=== PATIENT | female | born 1970 | race Caucasian/White ===

== ENCOUNTER 2020-07-26 09:02 | Emergency (ER) | payer OTHER, SELFPAY ==
--- NOTE | ~2020-07-26 | US_ITS ---
EXAMINATION: US venous doppler LE RT EXAM DATE: 07/26/2020 09:52 INDICATION: Right leg swollen and erythematous LE w/o trauma. TECHNIQUE: Multiple grayscale, color flow and Doppler images of the right lower extremity deep venous system were obtained and reviewed. There is no prior study for comparison. FINDINGS: The right common femoral, femoral and profunda veins demonstrate normal color flow, respira tory variation, augmentation and compressibility. Compressibility, color flow confirmed within the r ight popliteal, posterior tibial, peroneal, and greater saphenous veins. IMPRESSION: 1. No right lower extremity deep venous thrombosis. Reviewed, dictated and finalized at location B. GN INSERTER
--- NOTE | ~2020-07-26 | XR_ITS ---
EXAMINATION: XR knee RT min 4V DATE: 07/26/2020 09:59 INDICATION: Right knee pain and swelling. TECHNIQUE: 4 views of right knee were obtained. COMPARISON: None. FINDINGS: Bone alignment is normal. No fracture. There is mild tricompartmental osteoarthritis charac terized by tiny marginal osteophytes. No knee joint effusion. There is anterior knee soft tissue swel ling. IMPRESSION: 1. Mild right knee osteoarthritis. Reviewed, dictated and finalized at location A. TRONIC PREPRESS TECHNICIAN
[2020-07-26 09:00] VITALS: BP 121/66; PULSE 84; RESP 18; TEMP 37.7; O2SAT 96
[2020-07-26] MEDS: KETOROLAC 30 MG/ML VIAL (*BKC) 15 MG IV PUSH (09:25)
[2020-07-26 09:32] LABS: Basophils Absolute Auto 0.1 K/mm3 (0.0-0.1); Basophils Percent Auto 0.6 % (0.2-1.2); Eosinophils Absolute Auto 0.1 K/mm3 (0-0.3); Eosinophils Percent Auto 0.3 % (0-4.4); Hematocrit 38.5 % (37.0-47.0); Hemoglobin 12.8 g/dL (12.0-15.0); Immature Granulocyte Absolute 0.09 K/mm3 (0.00-0.031); Immature Granulocyte Percent A 0.6 % (0-0.5); Lymphocytes Absolute Auto 0.78 K/mm3 (0.9-3.2); Lymphocytes Percent Auto 5.3 % (18.3-44.2); Mean Corpuscular HGB Conc 33.2 g/dl (32-36); Mean Corpuscular Hemoglobin 29.2 pg (26-34); Mean Corpuscular Volume 87.7 fl (80-100); Mean Platelet Volume 11.5 fl (7.4-10.4); Monocytes Absolute Auto 0.7 K/mm3 (0.1-0.6); Monocytes Percent Auto 5.1 % (2.6-8.5); Neutrophils Absolute Auto 12.8 K/mm3 (1.3-6.7); Neutrophils Percent Auto 88.1 % (45.5-73.1); Platelet Count Result 144 k/mm3 (150-375); Red Blood Count 4.39 M/mm3 (4.2-5.4); Red Cell Distribution Width 13.4 % (11.5-14.5); White Blood Count 14.6 K/mm3 (4.5-10.0)
[2020-07-26 09:41] LABS: INR 1.1; Partial Thromboplastin Time 28.1 SECONDS (22.3-36.8); Prothrombin Time 14.4 Seconds (11.1-14.7)
[2020-07-26 09:49] LABS: Alanine Aminotransferase 12 U/L (4-35); Albumin Level 3.2 g/dL (3.5-5.1); Alkaline Phosphatase 72 U/L (38-126); Anion Gap 8 mmol/L (8-16); Aspartate Amino Transferase 23 U/L (14-36); Bilirubin,Total 1.3 mg/dL (0.2-1.3); Blood Urea Nitrogen 17 mg/dL (7-17); Calcium 8.3 mg/dL (8.4-10.2); Carbon Dioxide 24 mmol/L (22-30); Chloride 98 mmol/L (98-107); Creatine Kinase 22 U/L (30-135); Estimated CRCL calculation 88 ml/min; Estimated Glomerular Filt Rate > 60; Glucose 132 mg/dL (65-105); Potassium 3.9 mmol/L (3.4-5.0); Sodium 130 mmol/L (137-145); Uric Acid 1.5 mg/dL (2.5-7.5)
[2020-07-26 10:37] VITALS: BP 105/61; PULSE 98; RESP 17; O2SAT 97
[2020-07-26] MEDS: CLINDAMYCIN 600 MG/NS 50 ML 600 MG/50 ML PIGGYBACK 100 MG IVPB (10:56)
--- NOTE | 2020-07-26 10:56 | ED.GENADULT ---
HPI - General Adult General Chief complaint: Extremity Injury, Lower Stated complaint: PAIN/SWELLING RT KNEE Time Seen by Provider: 07/26/20 09:06 Source: patient Mode of arrival: EMS Limitations: no limitations History of Present Illness HPI narrative: Patient presents with chief complaint of pain to the distal aspect of her calf and extends upward into her knee that has been worsening in redness and erythema and pain over the past 3 days. Patient states she has difficulty bearing weight due to pain and swelling. Patient reports that she has not had any trauma to the right knee besides cleaning 5 days ago on her knees. Patient states she has never had gout in her knees to her knowledge nor any other issues besides arthritis. Patient denies fever, chills, nausea, vomiting, diarrhea. Patient denies history of DVTs or PEs. Patient denies recent travel or being on any blood thinners. Related Data Allergies Allergy/AdvReac Type Severity Reaction Status Date / Time Penicillins Allergy Unknown unknown Verified 07/26/20 09:06 PCN? Allergy Unknown unknown Uncoded 02/29/20 16:14 Review of Systems Review of Systems: Narrative: CONSTITUTIONAL: Denies fever, chills, or sweats. EYES: Denies visual changes, redness, or discharge. ENT: Denies rhinorrhea, congestion, sore throat, or otalgia. CARDIOVASCULAR: Denies chest pain, palpitations, or edema. RESPIRATORY: Denies cough or dyspnea. GASTROINTESTINAL: Denies abdominal pain, nausea, vomiting, or diarrhea. GENITOURINARY: Denies dysuria or hematuria. SKIN: Reports erythema swelling and pain to right knee denies rash or itching. MUSCULOSKELETAL: Reports right knee pain and swelling denies back pain or myalgia. NEUROLOGIC: Denies headache, numbness, dizziness, or weakness. PSYCHIATRIC: Denies anxiety or depression. FORMERLY [facility], 1928–1983 Past Medical History Medical History (Updated 07/26/20 @ 11:06 by Phoebe Morrison PA-C) Back pain Varicose vein of leg Vitamin D deficiency, unspecified Surgical History Surgical History (Updated 02/29/20 @ 16:43 by Zulma Cantrell, ) H/O varicose vein stripping (~2009) S/P section (~1994) S/P eye surgery (~1973) Family History Family History (Updated 06/29/20 @ 16:46 by Zulma Cantrell, ) Mother Hypertension Heart disease Father COPD (chronic obstructive pulmonary disease) with emphysema Social History Social History (Updated 02/29/20 @ 16:45 by Zulma Cantrell, ) Smoking status: Former smoker Tobacco type: cigarettes and e-cigarettes/vaping Smoking end date: 09/02/13 Alcohol intake: never 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 HEAD: Normocephalic, atraumatic. EYES: PERRLA and EOMI. NECK: Supple. No adenopathy or masses. CHEST: Clear to auscultation. No respiratory distress. No wheezes rales or rhonchi HEART: Regular rate and rhythm. No murmur heard. Normal peripheral pulses. EXTREMITIES: Edema, erythema, swelling and tenderness noted to the anterior aspect of the right knee distally to the proximal aspect of the right calf. There is pain with palpation of the calf and flexion extension of the ankle. The calf is not tight. Cap refill and pulses intact. Patient refuses to flex or extend the knee due to pain. Patient refuses to weight-bear. NEURO: No focal deficits. Alert and oriented x3. PSYCH: Normal mood and affect. Course Vital Signs Vital signs: Vital Signs Temperature 99.8 F H 07/26/20 09:00 Pulse Rate 84 07/26/20 09:00 Respiratory Rate 18 07/26/20 09:00 Blood Pressure 121/66 07/26/20 09:00 Pulse Oximetry 96 07/26/20 09:00 Temperature 99.8 F H 07/26/20 09:00 Pulse Rate 98 07/26/20 10:37 Respiratory Rate 17 07/26/20 10:37 Blood Pressure 105/61 07/26/20 10:37 Pulse Oximetry 97 07/26/20 10:37 Medical Decision Making
[2020-07-26 11:54] VITALS: BP 102/60; PULSE 92; RESP 15; O2SAT 97
== END 2020-07-26 11:56 | disposition home or self-care (01) ==
PROVIDERS: Physician Assistant; Emergency Provider Family Medicine
DX: L03.115 Cellulitis of right lower limb (principal); E55.9 Vitamin D deficiency, unspecified; Z87.891 Personal history of nicotine dependence
CPT/HCPCS: 36415; 73564; 80053; 82550; 84550; 85025; 85610; 85730; 87040; 93971; 96365; 96375; 99284; J1885

== ENCOUNTER 2020-08-01 09:47 | Emergency (ER) | payer OTHER, SELFPAY ==
--- NOTE | ~2020-08-01 | XR_ITS ---
EXAMINATION: XR knee RT 3V DATE: 08/01/2020 10:25 INDICATION: Right knee swelling. TECHNIQUE: 3 views of right knee were obtained. COMPARISON: Right knee radiographs 07/26/2020 FINDINGS: Bone alignment is normal. No fracture. There is mild tricompartmental osteoarthritis. There is a tiny marginal osteophytes. No knee joint effusion. There is anterior knee soft tissue swelling, consistent with bursitis. IMPRESSION: 1. Mild right knee osteoarthritis. 2. Prepatellar and superficial infrapatellar bursitis. Reviewed, dictated and finalized at location A. BURNER
[2020-08-01 09:52] VITALS: BP 120/89; PULSE 93; RESP 18; TEMP 36.6; O2SAT 100
--- NOTE | 2020-08-01 10:07 | ED.SKABFB ---
HPI - Skin/Abscess/Foreign Bdy General Chief complaint: Extremity Injury, Lower Stated complaint: right leg pain Time Seen by Provider: 08/01/20 09:51 History of Present Illness HPI narrative: Sent from Dr. Pelayo's office for concerns about worsening cellulitis. She was originally seen here 6 days ago and discharged on clindamycin. The provider seeing her today had not seen it previously, but thought that it might be worse. The patient, her , and the ED nurse all feel that it has improved. She does have ongoing pain, but feels that it is better than it had been. No fever, chills, nausea, vomiting. She has a penicillin allergy. Related Data Allergies Allergy/AdvReac Type Severity Reaction Status Date / Time Penicillins Allergy Unknown unknown Verified 08/01/20 09:56 Review of Systems Review of Systems: All systems reviewed & are unremarkable except as noted in HPI and below Constitutional: Constitutional: Denies chills and Denies fever(s) Cardiovascular: Cardiovascular: Denies chest pain Respiratory: Respiratory: Denies dyspnea Gastrointestinal: Gastrointestinal: Denies abdominal pain, Denies nausea and Denies vomiting Musculoskeletal: Musculoskeletal: Denies back pain Neurologic: Denies numbness and Denies weakness PMFSH Past Medical History Medical History Back pain Varicose vein of leg Vitamin D deficiency, unspecified Surgical History Surgical History H/O varicose vein stripping (~2009) S/P section (~1994) S/P eye surgery (~1973) Family History Family History Mother Hypertension Heart disease Father COPD (chronic obstructive pulmonary disease) with emphysema Social History Social History Smoking status: Former smoker Tobacco type: cigarettes and e-cigarettes/vaping Smoking end date: 09/02/13 Alcohol intake: never 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 No significant warmth or redenss Neuro: General: patient oriented x3, moves all extremities and CN's II-XI intact bilaterally Speech: normal speech Extrem: Other: Mild swelling of the right distal thigh though calf. Worst around the knee. Moderate tenderness around the joint line. Full ROM. Course Vital Signs Vital signs: Vital Signs Temperature 36.6 C 08/01/20 09:52 Pulse Rate 93 08/01/20 09:52 Respiratory Rate 18 08/01/20 09:52 Blood Pressure 120/89 08/01/20 09:52 Pulse Oximetry 100 08/01/20 09:52 Temperature 36.6 C 08/01/20 09:52 Pulse Rate 64 08/01/20 12:21 Respiratory Rate 18 08/01/20 12:21 Blood Pressure 112/71 08/01/20 12:21 Pulse Oximetry 100 08/01/20 12:21 MDM - Skin/Abscess/Foreign Bdy MDM Narrative Medical decision making narrative: Everbody who has previously seen her leg believes that it is improving, including the patient and the nurse taking care of her today. I have not seen it previously, but it looks mild at this time. White count still elevated, but improving. I do not believe that she requires hospitalization at this time. I will change doxycycline to see if it is more effective. Medical Records Attestation: I reviewed the patient's medical records. Lab Data Attestation: I reviewed the patient's lab results. Result d
[2020-08-01 10:40] LABS: Basophils Absolute Auto 0.1 K/mm3 (0.0-0.1); Basophils Percent Auto 0.4 % (0.2-1.2); Eosinophils Absolute Auto 0.1 K/mm3 (0-0.3); Eosinophils Percent Auto 0.7 % (0-4.4); Hematocrit 33.8 % (37.0-47.0); Hemoglobin 11.1 g/dL (12.0-15.0); Immature Granulocyte Absolute 0.24 K/mm3 (0.00-0.031); Lymphocytes Absolute Auto 2.67 K/mm3 (0.9-3.2); Lymphocytes Percent Auto 22.3 % (18.3-44.2); Mean Corpuscular HGB Conc 32.8 g/dl (32-36); Mean Corpuscular Hemoglobin 28.2 pg (26-34); Mean Corpuscular Volume 85.8 fl (80-100); Mean Platelet Volume 10.3 fl (7.4-10.4); Monocytes Absolute Auto 0.5 K/mm3 (0.1-0.6); Monocytes Percent Auto 4.2 % (2.6-8.5); Neutrophils Absolute Auto 8.4 K/mm3 (1.3-6.7); Neutrophils Percent Auto 70.4 % (45.5-73.1); Platelet Count Result 380 k/mm3 (150-375); Red Blood Count 3.94 M/mm3 (4.2-5.4); Red Cell Distribution Width 14.2 % (11.5-14.5)
[2020-08-01 10:51] LABS: Anion Gap 5 mmol/L (8-16); Blood Urea Nitrogen 20 mg/dL (7-17); Calcium 8.3 mg/dL (8.4-10.2); Carbon Dioxide 29 mmol/L (22-30); Chloride 105 mmol/L (98-107); Estimated Glomerular Filt Rate > 60; Glucose 126 mg/dL (65-105); Sodium 139 mmol/L (137-145)
[2020-08-01 12:21] VITALS: BP 112/71; PULSE 64; RESP 18; O2SAT 100
== END 2020-08-01 13:52 | disposition home or self-care (01) ==
PROVIDERS: Emergency Provider Emergency Medicine; PCP Family Medicine
DX: L03.115 Cellulitis of right lower limb (principal); Z87.891 Personal history of nicotine dependence; E55.9 Vitamin D deficiency, unspecified
CPT/HCPCS: 36415; 73562; 80048; 85025; 96365; 99284; J0690

== ENCOUNTER 2020-08-29 16:46 | Outpatient (CLI) | payer OTHER, SELFPAY ==
--- NOTE | ~2020-08-29 | MR_ITS ---
EXAMINATION: MR knee RT wo con DATE: 08/29/2020 17:43 INDICATION: Right knee pain. TECHNIQUE: Magnetic resonance imaging (MRI) of the affected knee was performed without intravenous co ntrast. Sequences included coronal PD-weighted FSE, coronal PD-weighted FS FSE, sagittal T2-weighted FSE, sagittal PD-weighted FS FSE and axial PD weighted fat saturated FSE. COMPARISON: None. FINDINGS: Medial compartment: Medial meniscus is normal. Articular cartilage is normal. Lateral compartment: Lateral meniscus is normal. Small region of partial-thickness chondral fissuring at the central aspec t of the lateral tibial plateau. Articular cartilage along the lateral femoral condyle is normal. Patellofemoral compartment: Horizontally oriented chondral fissuring involving greater than 50% the cartilage thickness but witho ut degenerative subchondral changes extending from the medial side of the lateral patellar facet acro ss the apical ridge and medial facet. Trochlear cartilage is normal. Ligaments and tendons: Anterior and posterior cruciate ligaments are normal. The medial collateral ligament and fibular argelia ateral ligament complex are normal. The extensor mechanism is normal. The visualized medial and later al hamstring tendons as well as the iliotibial band are normal. Fluid: Physiologic amount of fluid in the joint space. No loose osteochondral bodies identified. Prepatellar bursitis with small amount of fluid in the prepatellar bursa which measures approximately 2.8 cm med ial collateral, 3.3 cm craniocaudally and up to 5 mm in maximal thickness. There is an additional lar thi loculated fluid collection measuring approximately 6 cm craniocaudally, 5.0 cm anteroposteriorly and 9 mm in maximal thickness overlying the lateral patellar retinaculum. There is prominent subcutan eous edema at the anterior, medial and lateral aspects of the knee consistent with given history of c ellulitis. Osseous/other: Normal marrow signal. No fracture or abnormal marrow replacing process. IMPRESSION: 1. Small amount of fluid in the prepatellar bursa consistent with bursitis which could be either sept ic or aseptic. 2. Additional larger loculated subcutaneous fluid collection overlying the lateral patellar retinacul um which could represent an abscess or less likely hematoma/seroma given the provided history of no p rior trauma. 3. Mild osteoarthritis with regions of moderate grade chondromalacia at the patella and lateral tibia l plateau. Reviewed, dictated and finalized at location A. NG TELLER IMPRESSION: 1. Small amount of fluid in the prepatellar bursa consistent with bursitis whic h could be either septic or aseptic. 2. Additional larger loculated subcutaneous fluid collection overlying the late ral patellar retinaculum which could represent an abscess or less likely hemato ma/seroma given the provided history of no prior trauma. 3. Mild osteoarthritis with regions of moderate grade chondromalacia at the pat malik and lateral tibial plateau.
== END 2020-08-29 16:47 | disposition home or self-care (01) ==
PROVIDERS: PCP Family Medicine; Visit Provider Nurse Practitioner
DX: M70.41 Prepatellar bursitis, right knee (principal); M17.11 Unilateral primary osteoarthritis, right knee
CPT/HCPCS: 73721

== ENCOUNTER 2020-10-11 15:18 | Outpatient (RCR) | payer OTHER, SELFPAY ==
--- NOTE | 2020-10-11 16:05 | PTOPEVAL ---
PHYSICAL THERAPY EVALUATION AND DISCHARGE Thank you for referring Christen Rodríguez to [facility].? The patient does not currently require skilled therapy. She was provided with HEP to continue. No further care plan will be developed. Please review, sign, date and return this plan of care SEAN. I agree with and certify that the following plan of care is medically necessary. Referring Physician Date Attending Provider: Jamaal Perez MD Evaluation Diagnosis right knee bursitis Subjective Information Christen is here today with c/o Query Text:As Reported By Patient/ right knee pain. She reports Family that pain overall is much reduced. She states that if she goes down on the knee, she can feel the squishy-ness of the fluid in the knee. She walks her dog and she gets on the floor to play with her nephew. States that she only has pain when she does a lot of strenuous work. States that stair climbing has improved. States that when the pain first started, she was using crutches and a cane and then progressed to using nothing. She was using heat and ice to reduce pain. Self Report Pain Assessment Right Knee(s) Reported Pain Level 0 Pain Description Aching Pain Frequency Acute,Intermittent Lowest Pain Intensity 0 Greatest Pain Intensity 5 Pain Score Pain Score 0: Self Report Lower Extremity Range of Motion Knee Range of Motion Right Knee Flexion Range of Motion - Active 141 Knee Extension Range of Motion - Active 0 Query Text: Knee Range of Motion Limitations Edema Lower Extremity Muscle Strength Testing Hip Strength Right Hip Flexion Strength 5 Normal Hip Extension Strength 4 Good Hip Abduction Strength 4 Good Hip Strength Comments functional squat: 40% of squat with mild femoral internal rotation of right LE Knee Strength Right Knee Flexion Strength 5 Normal Knee Extension Strength 5 Normal Muscle Length Testing Muscle Length Testing Left Hamstring Length -20 Query Text:(90 - 90 Position) Right Hamstring Length -20 Query Text:(90 - 90 Position) Palpation Assessment Palpation Palpation no prepatellar edema noted to palpation Gait As
== END 2020-12-26 09:31 | disposition home or self-care (01) ==
LOC: ANHPT 15:18
PROVIDERS: PCP Family Medicine; Referring Provider Orthopaedic Surgery; Visit Provider Orthopaedic Surgery
DX: M25.561 Pain in right knee (principal); M71.9 Bursopathy, unspecified
CPT/HCPCS: 97161

== ENCOUNTER 2021-11-15 16:22 | Outpatient (CLI) | payer OTHER, SELFPAY ==
--- NOTE | ~2021-11-15 | XR_ITS ---
XR lumbar spine 2-3V DATE: 11/15/2021 16:41 INDICATION: Low back pain TECHNIQUE: AP, lateral and coned lateral lumbosacral views COMPARISON: CT lumbar spine FINDINGS: There is slight dextroscoliosis of the lumbar spine. There is a transitional L5 vertebra. There is moderate degenerative disc disease of the lumbar spine. There is associated mild retrolist hesis at L3-4. No fracture or bone destruction. The lumbar pedicles are intact. The sacroiliac joints are normal. IMPRESSION: Moderate degenerative disc disease of lumbar spine, with mild retrolisthesis at L3-4 Reviewed, dictated and finalized at location A. IMPRESSION: Moderate degenerative disc disease of lumbar spine, with mild retro listhesis at L3-4
== END 2021-11-15 16:23 | disposition home or self-care (01) ==
PROVIDERS: PCP Family Medicine; Visit Provider Nurse Practitioner Family
DX: M54.50 Low back pain, unspecified (principal); M51.36 Other intervertebral disc degeneration, lumbar region
CPT/HCPCS: 72100

== ENCOUNTER 2025-03-20 10:02 | Outpatient (CLI) | payer OTHER, SELFPAY ==
--- OUTSIDE RECORDS SUMMARY | 2025-03-20 10:09 | XMS_ITS | Continuity of Care Document ---
Author Organization [facility] Address [address] [place] [address] [place] [address] Phone Care Team Providers Care Oil Developer Name Role Phone Unavailable Unavailable Unavailable Advance Directives Directive Yes / No Effective Date File Name No Information Encounters Encounter Description Practice Location Reason(s) For Visit Diagnoses Date Provider Providers Copied on Encounter [facility], [address] [place], [place], [id number], [place] tel:[phone] [facility] No Information [phone] No Information Family History Family Member Type Diagnosis Age At Onset No Information Payers Payer name Insurance type Covered republican ID Authoriza tialma(s) [employer] [id number] Social History Type Description Quantity Date Captured Comments Sex Female Smoking Status No Information Chief Complaint And Reason For Visit No Information Reason For Referral Reason For Referral No Information History Of Present Illness Encounter Date Complaint History Of Prese nt Illness No Information Functional Status Date Functional Assessmen t No Information Instructions Date Instruction Additional Infor mation No Information Assessments Type Assessment Date No Information Patient Care Teams Name Effective Dates (start - stop) Status Members No Information
[2025-03-20 10:53] LABS: Hematocrit 41.9 % (37.0-47.0); Hemoglobin 13.0 g/dL (12.0-15.0); Immature Granulocyte Percent A 0.3 % (0-0.5); Lymphocytes Absolute Auto 2.44 K/mm3 (0.9-3.2); Mean Corpuscular HGB Conc 31.0 g/dl (32-36); Mean Corpuscular Hemoglobin 27.5 pg (26-34); Mean Corpuscular Volume 88.6 fl (80-100); Nucleated Red Blood Cells Absolute Auto 0.000 K/mm3 (0.0-0.012); Nucleated Red Blood Cells Perc 0.0 % (0.0-0.2); Platelet Count Result 188 k/mm3 (150-375); Red Blood Count 4.73 M/mm3 (4.2-5.4); White Blood Count 7.2 K/mm3 (4.5-10.0)
[2025-03-20 10:56] LABS: Add Urine Microscopic? NO; Appearance Urine Clear (Clear); Glucose Urine UA Negative (Negative); Leukocyte Esterase Ur Negative LEU/UL (Negative); Nitrate Urine Negative (Negative); Specific Grav Ur 1.020 (1.001-1.035)
[2025-03-20 11:20] LABS: Alanine Aminotransferase 11 U/L (6-35); Albumin Level 4.1 g/dL (3.5-5.1); Alkaline Phosphatase 54 U/L (38-126); Anion Gap 7 mmol/L (4-12); Aspartate Amino Transferase 33 U/L (14-36); Bilirubin,Total 0.6 mg/dL (0.2-1.3); Blood Urea Nitrogen 19 mg/dL (7-17); Calcium 9.1 mg/dL (8.4-10.2); Carbon Dioxide 27 mmol/L (22-30); Chloride 106 mmol/L (98-107); Cholesterol 164 mg/dL (0-200); Estimated Glomerular Filt Rate > 60; Glucose 104 mg/dL (65-110); HDL Direct 54 mg/dL; Potassium 4.0 mmol/L (3.4-5.0); Sodium 140 mmol/L (137-145); Total Protein 7.5 g/dL (6.3-8.2); Triglycerides 72 mg/dL (<150)
[2025-03-20 12:31] LABS: Vitamin B12 542.0 pg/mL (239-931)
== END 2025-03-20 10:03 | disposition home or self-care (01) ==
LOC: ANHLAB 10:07
PROVIDERS: PCP Nurse Practitioner; Visit Provider Nurse Practitioner
DX: Z00.00 Encounter for general adult medical examination without abnormal findings (principal); Z13.21 Encounter for screening for nutritional disorder; R53.81 Other malaise; R63.5 Abnormal weight gain
CPT/HCPCS: 36415; 80053; 80061; 81003; 82306; 82607; 82746; 85025